=== PATIENT | male | born 1935 | race Caucasian/White ===

== ENCOUNTER 2021-02-15 20:40 | Inpatient (IN) | payer MEDICARE ==
[~2021-02-15] VITALS: Ht 167.6 cm; Wt 78.2 kg
[~2021-02-15 20:40] MED LIST: ASPIRIN 32325 MG/TAB PO; CARDURA 8MG TAB8 MG PO; LIPITOR 40MG TA40 MG PO; PLAVIX 75MG TAB75 MG PO; PROSCAR 5MG5 MG PO; TOPROL XL 25MG25 MG PO; ZESTRIL 5MG5 MG PO
[2021-02-15 21:57] LABS: BASO % 0.3 % (0.0-2.0); EOS % 0.1 % (0.0-4.0); GRAN # 8.6 K/mm3 (1.4-6.5); GRAN % 89.5 % (42.2-75.2); HEMATOCRIT 38.5 % (42.0-52.0); HEMOGLOBIN 13.3 g/dl (13.5-18.0); LYMPH # 0.5 K/mm3 (1.2-3.4); MEAN CELL VOLUME 89 fl (80.0-100.0); MEAN CORPUSCULAR HEMOGLOBIN 31 pg (27-31); MEAN CORPUSCULAR HGB CONC 35 g/dl (33.0-37.0); MEAN PLATELET VOLUME 10.1 fl (7.4-10.4); MONO # 0.5 K/mm3 (0.1-0.6); MONO % 4.8 % (1.7-9.3); PLATELET COUNT 152 K/mm3 (130-400); RED BLOOD COUNT 4.32 M/mm3 (4.20-5.60); REDCELL DISTRIBUTION WIDTH-CV 12.6 % (11.5-14.5)
[2021-02-15 22:15] LABS: ALBUMIN 3.9 gm/dL (3.4-4.8); BILIRUBIN,TOTAL 1.5 mg/dL (0.2-1.2); CALCIUM 8.5 mg/dL (8.4-10.2); CREATININE, serum 0.89 mg/dL (0.72-1.25); TOTAL PROTEIN 6.3 gm/dL (6.2-8.1)
[2021-02-15] MEDS ORDERED: LIPITOR20 MG PO (23:39)
[2021-02-15] MEDS ORDERED: PRILOSEC 20MG20 MG PO (23:43)
[2021-02-16] VITALS (13 sets, daily range): BP systolic 106–171; BP diastolic 45–88; PULSE 92–112; TEMP 97.4–99.5
[2021-02-16 02:57] LABS: INR 1.2 (0.8-3.0); PROTHROMBIN TIME 13.1 SECONDS (9.7-12.8)
[2021-02-16 03:06] LABS: COLLECTION METHOD CLEAN CATCH
[2021-02-16 03:57] LABS: BUDDING YEAST Present (NOT PRESENT); MUCOUS Present (NOT PRESENT); PH 5 (5-8); SQUAMOUS EPITHELIAL None Seen /hpf (0-10); URINE APPEARANCE Clear (CLEAR/HAZY); URINE BACTERIA None Seen (NONE SEEN); URINE BILIRUBIN Negative (NEGATIVE); URINE BLOOD 3+ (NEGATIVE); URINE COLOR Yellow (YELLOW); URINE GLUCOSE 2+ (NEGATIVE); URINE KETONE 1+ (NEGATIVE); URINE LEUKOCYTE ESTERASE Negative (NEGATIVE); URINE NITRATE Negative (NEGATIVE); URINE PROTEIN(semi-quant) Negative (NEGATIVE); URINE RBC >50 /hpf (0-2); URINE UROBILINOGEN Negative (NEGATIVE)
--- NOTE | 2021-02-16 06:12 | NUR ---
Patient arrived to surgical unit from ER around 0145. Alert and oriented x 4. Peripheral IV to right wrist, IV fluids started per orders. Patient NPO for possible surgery today. Given PRN Morphine for pain as requested to left hip. Indwelling coronel catheter placed, clear yellow urine. UA sent to lab. Patient voices no questions, needs, or concerns at this time. In bed with call light within reach.
[2021-02-16 07:37] LABS: CALCIUM 8.5 mg/dL (8.4-10.2); CREATININE, serum 0.82 mg/dL (0.72-1.25)
--- NOTE | 2021-02-16 07:45 | NUR ---
BEDSIDE REPORT RECEIVED FROM PANCHO MAGANA RESTING IN BED IVF INFUSING. PT DENIES ANY NEEDS AT THIS TIME
[2021-02-16 08:09] LABS: BASO % 0.2 % (0.0-2.0); GRAN # 5.6 K/mm3 (1.4-6.5); GRAN % 85.3 % (42.2-75.2); HEMATOCRIT 38.8 % (42.0-52.0); HEMOGLOBIN 13.4 g/dl (13.5-18.0); LYMPH # 0.4 K/mm3 (1.2-3.4); LYMPH % 6.4 % (20.0-51.0); MEAN CELL VOLUME 88 fl (80.0-100.0); MEAN CORPUSCULAR HEMOGLOBIN 31 pg (27-31); MEAN CORPUSCULAR HGB CONC 35 g/dl (33.0-37.0); MEAN PLATELET VOLUME 10.5 fl (7.4-10.4); MONO # 0.5 K/mm3 (0.1-0.6); MONO % 7.6 % (1.7-9.3); PLATELET COUNT 140 K/mm3 (130-400); RED BLOOD COUNT 4.39 M/mm3 (4.20-5.60); REDCELL DISTRIBUTION WIDTH-CV 12.7 % (11.5-14.5)
--- NOTE | 2021-02-16 14:05 | NUR ---
SW met with patient to discuss discharge plan. Patient lives at home with his Verónica ([phone]) in [place], [place] Patient's daughter Brittnee ([phone]) present at bedside. Patient reports that he is independent with his ADL's and uses a walker to assist with ambulation. Patient reports to no oxygen needs. PCP is Dr. collier and he utilizes [facility] pharmacy for medications with no cost difficulty. Patient reports that he does have a DPOA-HC listing his daughter Sharon ([phone]) as his agent. Spoke with the patient about the need for SNF post discharge. Perferred choice is [facility] and second choice is [facility]. Discharge plan [facility]
--- NOTE | 2021-02-16 15:55 | NUR ---
PT WAS STILL IN POST OP
--- NOTE | 2021-02-16 15:56 | NUR ---
PT WAS STILL IN POST OP
[2021-02-17 00:17] VITALS: BP 90/45; PULSE 89; TEMP 99.5
[2021-02-17 03:58] VITALS: BP 111/79; PULSE 50; TEMP 98
--- NOTE | 2021-02-17 04:33 | NUR ---
PT STATES HE'S RESTED VERY WELL DURING THE NIGHT. HE ALSO STATES HIS PAIN IS BETTER NOW THAN BEFORE HE FELL. PT STATES HE HAD PAIN IN HIS HIS BEFORE HE FELL.
[2021-02-17 07:41] VITALS: BP 80/49; PULSE 80; TEMP 97.6
[2021-02-17 08:11] LABS: HEMOGLOBIN 11.6 g/dl (13.5-18.0)
[2021-02-17 08:28] LABS: HEMATOCRIT 33.5 % (42.0-52.0)
--- NOTE | 2021-02-17 09:45 | NUR ---
Patient alert and oriented, answers questions appropriately. See assessment. LLE incisions with dressing CDI, no redness or drainage noted. BLE pulses palpable, sensation intact, no c/o numbness or tingling. FWB. CHUCK hose and SCDs applied bilaterally. Tadeo catheter in place, patent, draining clear yellow urine. PT assisting patient with exercises and to chair at this time.
[2021-02-17 11:13] VITALS: BP 93/48; PULSE 77; TEMP 97.3
--- NOTE | 2021-02-17 11:28 | NUR ---
Tadeo catheter discontinued per drs order at this time. Tolerated well.
--- NOTE | 2021-02-17 12:30 | NUR ---
Patient remains in chair, has stood and repositioned x2. No c/o at this time.
[2021-02-17 15:38] VITALS: BP 88/38; PULSE 84; TEMP 98.2
--- NOTE | 2021-02-17 16:03 | NUR ---
Patient remains up in chair, with standing at chair side approx every hour. Family at bedside. No c/o at this time.
--- NOTE | 2021-02-17 17:52 | NUR ---
Dr Ng notified of bp 88/38 at 1630, continue to monitor.
[2021-02-17 19:36] VITALS: BP 132/62; PULSE 73; TEMP 97.5
[2021-02-18 00:47] VITALS: BP 111/67; PULSE 82; TEMP 97.9
[2021-02-18 03:52] VITALS: BP 90/49; PULSE 78; TEMP 98
--- NOTE | 2021-02-18 05:30 | NUR ---
PT RESTING QUIETLY. OXYCODONE FOR HIP PAIN. NO N/V.
[2021-02-18 07:10] LABS: HEMOGLOBIN 10.8 g/dl (13.5-18.0)
[2021-02-18 07:25] LABS: HEMATOCRIT 31.1 % (42.0-52.0)
[2021-02-18 08:00] VITALS: BP 125/58; PULSE 76; TEMP 98.4
[2021-02-18 08:39] LABS: CREATININE, serum 0.89 mg/dL (0.72-1.25); POTASSIUM 3.8 mmol/L (3.5-4.5)
--- NOTE | 2021-02-18 10:20 | NUR ---
Patient alert and oriented, answers questions appropriately. See assessment. Left hip dressing CDI, no redness noted. Pulses palpable to BLE. Sensation intact to BLE, no numbness or tingling. FWB. Uses gait belt and FWW for ambulation. Post op exercises reviewed with patient. No c/o at this time.
--- NOTE | 2021-02-18 10:36 | NUR ---
The PA notified [facility] that they would be ready to discharge the patient today. THELMA met with the patient and his daughter, Brtitnee, to update and review discharge plan. The patient and his daughter would prefer [facility] and then [facility]. THELMA inquired about the patient's insurance. At this time, we have on file that he has [employer]. The patient reports that he does have Medicare and [employer]. The patient's daughter provided THELMA with a copy of his insurance cards. THELMA notified and emailed a copy of them to admissions and Financial Counseling. THELMA attempted to contact Elba at [facility]. THELMA left her a voicemail and faxed over the referral. THELMA contacted and faxed a referral to Vanessa at [facility]. THELMA also contacted [facility] to inquire if they manage the patient's plan. The rep reports that they do. THELMA faxed records to [employer] for auth. Awaiting screens and insurance auth. *Discharge plan: SB vs SNF*
[2021-02-18 12:00] VITALS: BP 111/45; PULSE 77; TEMP 98
[2021-02-18] MEDS ORDERED: LIPITOR20 MG PO (12:51)
[2021-02-18] MEDS ORDERED: TOPROL XL 25MG25 MG PO (12:51)
[2021-02-18] MEDS ORDERED: CARDURA 8MG TAB8 MG PO (12:51)
[2021-02-18] MEDS ORDERED: ZESTRIL 5MG5 MG PO (12:52)
[2021-02-18] MEDS ORDERED: ASPIRIN 32325 MG/TAB PO (12:52)
[2021-02-18] MEDS ORDERED: TYLENOL 500MG500 MG PO (12:53)
[2021-02-18] MEDS ORDERED: ROXICODONE 55 MG/TAB PO (12:53)
[2021-02-18] MEDS ORDERED: OSCAL 500 TAB500 MG PO (12:53)
[2021-02-18] MEDS ORDERED: VITAMIN C500 MG PO (12:54)
[2021-02-18] MEDS ORDERED: PRILOSEC 20MG20 MG PO (12:54)
[2021-02-18] MEDS ORDERED: SENOKOT S 50 MG1 TAB PO (12:54)
[2021-02-18] MEDS ORDERED: DULCOLAX S10 MG/SUPP RC (12:54)
[2021-02-18] MEDS ORDERED: MULTI VITAMINS1 TAB PO (12:55)
[2021-02-18] MEDS ORDERED: PROSCAR 5MG5 MG PO (12:55)
--- NOTE | 2021-02-18 12:55 | NUR ---
A rep from [facility] contacted THELMA. She reports that the patient pays a private fee, where his plan does not need auth. She reports that she can approve the SNF stay though at [facility]. The rep approved the stay at [facility], starting today through the . ID#[id number]. THELMA notified Vanessa at [facility]. Elba, at [facility], returned THELMA's phone call. Elba reports that they have a bed meeting at 1300. She reports that they are hoping for some discharges and to be able to transfer some patient's out. She reports that they have been unable to transfer the patient's though and are unsure if they will have a bed. Vanessa, at [facility], reports that they are all good to accept the patient today. THELMA met with the patient, his , and had the daughter (Brittnee) on speaker phone. THELMA updated them on the above. The patient is good with going to [facility] today. His family was supportive of his decision. THELMA presented and read the IM form outloud to him. The patient verbalized understanding and gave THELMA approval to sign the form on his behalf. THELMA provided him with a copy. The patient is to discharge today, 02/18, to [facility] for a skilled stay. Transportation was scheduled around 1430, via [facility]. THELMA informed the patient, his family, and RN of the time. No additional needs at this time.
[2021-02-18 13:35] VITALS: BP 111/45; PULSE 77; TEMP 98
--- NOTE | 2021-02-18 14:52 | NUR ---
Patient transfered to [facility] via wheelchair with transporation staff at 1450. Paperwork sent, report called to Sally.
== END 2021-02-18 14:50 | DRG 481 ==
LOC: EDBD 20:40 → COL.ER 20:40 → SURG 23:25
PROVIDERS: Nurse Practitioner Family; Orthopaedic Surgery; Physician Assistant; ADMIT Internal Medicine
PROC: 0QS706Z Reposition Left Upper Femur with Intramedullary Internal Fixation Device, Open Approach (ICD-10-PCS; principal; 2021-02-16 12:30)
DX: S72.142A Displaced intertrochanteric fracture of left femur, initial encounter for closed fracture (principal); E87.2 Acidosis; I10 Essential (primary) hypertension; E78.5 Hyperlipidemia, unspecified; I25.10 Atherosclerotic heart disease of native coronary artery without angina pectoris; N40.0 Benign prostatic hyperplasia without lower urinary tract symptoms; Z79.82 Long term (current) use of aspirin; D64.9 Anemia, unspecified; I48.91 Unspecified atrial fibrillation; R73.9 Hyperglycemia, unspecified; Y92.89 Other specified places as the place of occurrence of the external cause; V84.9XXA Unspecified occupant of special agricultural vehicle injured in nontraffic accident, initial encounter
CPT/HCPCS: 99222-AI; 99233-AI; 99239; A9284; C1713; J0690; J2270; J3010

== ENCOUNTER 2022-04-01 05:30 | Day surgery (SDC) | payer MEDICARE ==
[~2022-04-01] VITALS: Ht 165.1 cm; Wt 83.9 kg
[2022-04-01] VITALS (9 sets, daily range): BP systolic 96–136; BP diastolic 42–85; PULSE 64–104; TEMP 97.7–98.8
[~2022-04-01 05:30] MED LIST changes: +BETAPACE 120MG120 MG PO; +COLACE 100100 MG/CAP PO; +DULCOLAX S10 MG/SUPP RC; +LIPITOR20 MG PO; +MULTI VITAMINS1 TAB PO; +NORCO 325 MG-51 TAB PO; +OSCAL 500 TAB500 MG PO; +PRILOSEC 20MG20 MG PO; +ROXICODONE 55 MG/TAB PO; +SENOKOT S 50 MG1 TAB PO; +TOPROL XL 50MG50 MG PO; +TYLENOL 500MG500 MG PO; +VITAMIN C500 MG PO; +XARELTO20 MG PO; +ZESTRIL2.5 MG PO
--- NOTE | 2022-04-01 07:20 | NUR ---
PATIENT ARRIVED BACK TO ROOM 1 FOLLOWING PROCEDURE. NURSE HANDOFF COMPLETED IN ROOM, PRETTY Carrillo RN RECIEVE REPORT.
--- NOTE | 2022-04-01 07:45 | NUR ---
NURSE HANDOFF COMPLETED IN ROOM. PATIENT ALERT AND ORIENTED. DENIES NAUSEA, RATES PAIN TOLERABLE 3/10 TO LEFT LEG. LEFT LEG ELEVATED WITH ICE PACK PRESENT. BREATHING REGULAR AND UNLABORED. PULSE IRREGULAR, PATIENT REPORTS A HISTORY OF AFIB. PATIENT HAD A MUFFIN WITH WATER, BOTH TOLERATED WELL. PATIENT [facility] AND DAUGHTER BETH PRESENT IN ROOM. CALL LIGHT IN REACH.
--- NOTE | 2022-04-01 09:25 | NUR ---
PATIENT AMBULATED WITH CANE TO THE RESTROOM AND VOIDED WITHOUT DIFFICULTY AT 0852. GAIT STEADY. PATIENT RATED PAIN 2/10 TO LEFT LEG, PAIN WAS DESCRIBED TOLERABLE ACHING. DENIES NAUSEA. DISCHARGE TEACHING COMPLETED WITH PRINTED PT ORDER AND INSTRUCTIONS SENT HOME WITH PATIENT. PATIENT INFORMED OF FOLLOW UP APPOINTMENT AND WAS TOLD TO KEEP PT APPOINTMENT. PATIENT VERBALIZED UNDERSTANDING OF TEACHING. IV REMOVED. PATIENT CHANGED INTO PERSONAL CLOTHING AND WAS DISCHARGED HOME WITH [facility] AND [facility].
== END 2022-04-01 09:47 | disposition home or self-care (01) ==
LOC: SDCO 05:30
DX: M24.662 Ankylosis, left knee (principal); Z96.652 Presence of left artificial knee joint
CPT/HCPCS: J2704; J3010; J7120